=== PATIENT | female | born 1970 | race Caucasian/White ===

== ENCOUNTER 2021-12-20 09:47 | Outpatient (RCR) | payer OTHER ==
[~2021-12-20 09:47] MED LIST: FISH OIL 1000MG1 CAP PO; NORCO 325 MG-51 TAB PO; ZOFRAN 4MG T4 MG/TAB PO
== END 2021-12-26 | disposition home or self-care (01) ==
LOC: WSOH
DX: S67.01XA Crushing injury of right thumb, initial encounter (principal); S60.111A Contusion of right thumb with damage to nail, initial encounter; Y99.0 Civilian activity done for income or pay; Z90.710 Acquired absence of both cervix and uterus; Z90.49 Acquired absence of other specified parts of digestive tract

== ENCOUNTER 2022-01-03 13:37 | Outpatient (RCR) | payer OTHER | END 2022-01-26 | disposition home or self-care (01) | LOC: WSOH | DX: S60.111D Contusion of right thumb with damage to nail, subsequent encounter (principal); S67.01XD Crushing injury of right thumb, subsequent encounter; Y99.0 Civilian activity done for income or pay; Z90.49 Acquired absence of other specified parts of digestive tract; Z90.710 Acquired absence of both cervix and uterus; Z98.890 Other specified postprocedural states ==